=== PATIENT | female | born 1990 | race Caucasian/White ===

== ENCOUNTER 2017-02-08 08:26 | Inpatient (IN) | payer OTHER ==
[~2017-02-08] VITALS: Ht 175.3 cm; Wt 141.0 kg
[~2017-02-08 08:26] MED LIST: BUPIVACAINE/PF 0.5% ONE; EPINEPHRINE 1 MG/ML, 1ML ONE; NONE PER PT
[2017-02-08] MEDS ORDERED: LACTATED RINGERS 1,000 ML IV SCH (08:56)
[2017-02-08 09:11] VITALS: BP 135/84
[2017-02-08 09:17] LABS: HCG UR LOT HCG7030192
[2017-02-08 09:22] LABS: HCG UR OBC PASS
[2017-02-08] MEDS ORDERED: SCOPOLAMINE PATCH, 1.5MG PATCH.TD72 TD ONE ×2 (09:49→10:00)
[2017-02-08] MEDS ORDERED: MIDAZOLAM 1 MG/ML, 2ML ONE (10:19)
[2017-02-08] MEDS ORDERED: FENTANYL PF 250 MCG/5ML ONE (10:19)
[2017-02-08] MEDS ORDERED: PROPOFOL 10 MG/ML, 20ML ONE (10:20)
[2017-02-08] MEDS ORDERED: DEXAMETHASONE 4 MG/ML, 1ML ONE (10:20)
[2017-02-08] MEDS ORDERED: LIDOCAINE GEL 2%, 5ML ONE (10:20)
[2017-02-08] MEDS ORDERED: ONDANSETRON 2MG/ML, 2ML ONE ×2 (10:20→11:54)
[2017-02-08] MEDS ORDERED: ROCURONIUM 10 MG/ML ONE (10:40)
[2017-02-08] MEDS ORDERED: CEFAZOLIN 1,000 MG ONE (10:40)
[2017-02-08] MEDS ORDERED: SUCCINYLCHOLINE 20 MG/ML, 10ML ONE (10:40)
[2017-02-08] MEDS ORDERED: FENTANYL PF 100 MCG/2ML ONE ×2 (11:23→11:59)
[2017-02-08] MEDS ORDERED: ONDANSETRON 2MG/ML, 2ML IVPush PRN ×2 (11:30→12:00)
[2017-02-08] MEDS ORDERED: ACETAMINOPHEN 325 MG TABLET PO PRN (11:30)
[2017-02-08] MEDS ORDERED: MIDAZOLAM 1 MG/ML, 2ML IV PRN (11:30)
[2017-02-08] MEDS ORDERED: EPHEDRINE 50 MG/ML, 1ML IVPush PRN (11:30)
[2017-02-08] MEDS ORDERED: LABETALOL 5MG/ML, 20ML IV PRN (11:30)
[2017-02-08] MEDS ORDERED: HYDROmorphone 1 MG/ML, 1ML IV PRN (11:30)
[2017-02-08] MEDS ORDERED: PROMETHAZINE 25 MG/ML, 1ML IV PRN (11:30)
[2017-02-08] MEDS ORDERED: OXYcodone 5 MG/5 ML ORAL.SOL UDC PO PRN (11:30)
[2017-02-08] MEDS ORDERED: MEPERIDINE/PF 25MG/0.5ML IVPush PRN (11:30)
[2017-02-08] MEDS ORDERED: PROMETHAZINE 25 MG/ML, 1ML ONE (11:55)
[2017-02-08] MEDS ORDERED: PROMETHAZINE 12.5 MG SUPP PR PRN (12:00)
[2017-02-08] MEDS ORDERED: DIPHENHYDRAMINE 50 MG/ML, 1ML IV PRN (12:00)
[2017-02-08] MEDS ORDERED: PHENOL THROAT SPRAY BOTTLE MM PRN (12:00)
[2017-02-08] MEDS ORDERED: PROMETHAZINE 25 MG/ML, 1ML IM PRN (12:00)
[2017-02-08] MEDS ORDERED: hydrALAzine 20 MG/ML, 1ML IVPush PRN (12:00)
[2017-02-08] MEDS: FENTANYL PF 100 MCG/2ML IV PRN ×3 (12:00→12:30)
[2017-02-08] MEDS ORDERED: ENALAPRILAT 1.25 MG/ML, 2ML IV PRN (12:00)
[2017-02-08] MEDS ORDERED: LORazepam 2 MG/ML, 1ML IV PRN (12:00)
[2017-02-08 13:15] VITALS: BP 148/91
[2017-02-08] MEDS: FAMOTIDINE 20 MG/2 ML IVPush SCH ×2 (14:03→19:39)
[2017-02-08] MEDS: morphine SULFATE 10 MG/ML, 1ML IVPush PRN ×5 (14:03→19:38)
[2017-02-08] MEDS: LACTATED RINGERS 1,000 ML IV SCH ×2 (16:13→22:46)
[2017-02-08 19:30] VITALS: BP 111/74
[2017-02-08] MEDS: HYDROcodone/APAP 7.5-325MG/15ML UDC PO PRN (20:09)
[2017-02-09] MEDS: HYDROcodone/APAP 7.5-325MG/15ML UDC PO PRN ×3 (00:04→13:58)
[2017-02-09 00:14] VITALS: BP 109/75
[2017-02-09] MEDS ORDERED: LACTATED RINGERS 1,000 ML IV SCH (02:50)
[2017-02-09 04:06] VITALS: BP 116/75
[2017-02-09 05:17] LABS: HEMOGLOBIN 14.4 g/dL (11.7-16.4); WHITE BLOOD COUNT 13.8 x10^3/uL (3.4-10)
[2017-02-09 05:28] LABS: BLOOD UREA NITROGEN 6 mg/dL (7-18)
[2017-02-09] MEDS: FAMOTIDINE 20 MG/2 ML IVPush SCH (07:41)
[2017-02-09] MEDS ORDERED: SODIUM CHLORIDE FLUSH 3ML SYRINGE IVF SCH (09:00)
[2017-02-09 09:07] VITALS: BP 129/80
[2017-02-09 14:02] VITALS: BP 128/84
== END 2017-02-09 14:40 | disposition home or self-care (01) | DRG 621 ==
LOC: ORIP 08:26 → 4NOR 13:17 → DCLOUNGE 02-09 14:32
PROVIDERS: ADMIT Thoracic Surgery (Cardiothoracic Vascular Surgery); ATTEND Thoracic Surgery (Cardiothoracic Vascular Surgery)
PROC: 0BQT4ZZ Repair Diaphragm, Percutaneous Endoscopic Approach (ICD-10-PCS; 2017-02-08)
PROC: 0DB64Z3 Excision of Stomach, Percutaneous Endoscopic Approach, Vertical (ICD-10-PCS; principal; 2017-02-08 10:30)
DX: E66.01 Morbid (severe) obesity due to excess calories (principal); G89.29 Other chronic pain; K44.9 Diaphragmatic hernia without obstruction or gangrene; Z68.42 Body mass index [BMI] 45.0-49.9, adult; M54.9 Dorsalgia, unspecified
CPT/HCPCS: 36415; 80048; 81025; 82040; 85025; J0171; J0690; J1100; J2250; J2405; J2550; J2704; J3010; J3490; J0330; J2270; J7120; S0028